=== PATIENT | female | born 1950 | race Caucasian/White ===

== ENCOUNTER 2020-10-26 18:01 | Emergency (ER) | payer MEDICARE ==
[2020-10-26] MEDS ORDERED: HYDROmorphone 0.5 MG/0.5 ML Syringe IVPUSH ONE ×2 (18:20→19:47)
[2020-10-26] MEDS ORDERED: Ondansetron 4 MG/2 ML SDV IVPUSH ONE (18:29)
[2020-10-26] MEDS ORDERED: Sodium Chloride 0.9% 1,000 ML IV SCH (18:30)
--- NOTE | 2020-10-26 18:42 | EDM.PDOC ---
ED HPI GENERAL MEDICAL PROBLEM - General Chief Complaint: Abdominal Pain Stated Complaint: [facility] Time Seen by Provider: 10/26/20 18:15 Source of Information: Reports: Patient, Family History Limitations: Reports: No Limitations - History of Present Illness INITIAL COMMENTS - FREE TEXT/NARRATIVE: 69-year-old female brought in by ambulance with lower abdominal pain. Symptoms have been present for 5-1/2 hours, they started generally across the lower abdomen but are now more focal in the right lower quadrant. She initially felt she needed to have a bowel movement but was unable, she has had a normal bowel movement since then. She has developed nausea and vomiting as the day has gone on, no fevers or chills. No shortness of breath or chest pain. She has deve loped some peritoneal irritability, increased pain with movement and felt bumps in the road while coming in by ambulance. Continues to be nauseated. No previous symptoms like this in the past. She is diabetic, glucose was just over 200 in route, she is afebrile. Onset: Gradual (Somewhat gradual onset around 1:00 PM) Duration: Hour(s): (Almost 6 hours) Location: Reports: Abdomen (Lower abdomen) Quality: Reports: Sharp, Other (Cramping) Improves with: Reports: None Worsens with: Reports: Movement Associated Symptoms: Reports: Loss of Appetite, Malaise, Nausea/Vomiting. Denies: Chest Pain, Cough, Fever/Chills, Shortness of Breath, Weakness Middle Abdomen Pain Score (Numeric/FACES): 8 - Related Data Allergies Allergy/AdvReac Type Severity Reaction Status Date / Time buprenorphine [From Buprenex] Allergy Anaphylactic Verified 10/26/20 18:10 Shock hydrocodone Allergy Anaphylactic Verified 10/26/20 18:10 Shock prochlorperazine Allergy Agitation Verified 10/26/20 18:10 [From Compazine] Home Meds: Home Meds Insulin Isophane NPH, Human [NovoLIN N] 10 - 15 unit SQ BEDTIME 10/26/20 [Hi story] Insulin Isophane NPH, Human [NovoLIN N] 15 unit SQ ACBRK 10/26/20 [History] Insulin Regular, Human [NovoLIN R] 8 - 10 unit .XX BEDTIME 10/26/20 [History] Insulin Regular, Human [NovoLIN R] 8 unit .XX ACBREAKFAST 10/26/20 [History] Past Medical History HEENT History: Reports: Impaired Vision Cardiovascular History: Reports: Hypertension [employer]ING [employer] History: Reports: Neurological History: Reports: Concussion Endocrine/Metabolic History: Reports: Diabetes, Type II Immunologic History: Reports: Other (See Below) Other Immunologic History: fibromyalgia - Infectious Disease History Infectious Disease History: Reports: Chicken Pox, Measles, Mumps - Past Surgical History Female Surgical History: Reports: Section Neurological Surgical History: Reports: Spinal Fusion Social & Family History - Tobacco Use Tobacco Use Status *Q: Never Tobacco User - Caffeine Use Caffeine Use: Reports: Coffee, Tea - Recreational Drug Use Recreational Drug Use: No ED ROS GENERAL - Review of Systems Review Of Systems: See Below Constitutional: Reports: Malaise, Decreased Appetite. Denies: Fever, Chills HEENT: Reports: No Symptoms Respiratory: Denies: Shortness of Breath, Cough Cardiovascular: Denies: Chest Pain, Palpitations GI/Abdominal: Reports: Abdominal Pain, Nausea, Vomiting. Denies: Constipation, Diarrhea : Reports: No Symptoms Skin: Reports: No Symptoms Neurological: Reports: No Symptoms Psychiatric: Reports: No Symptoms ED EXAM, GI/ABD - Physical Exam Exam: See Below Exam Limited By: No Limitations General Appearance: Alert, Mild Distress Eyes: Bilateral: Normal Appearance (Well hydrated, no jaundice) Head: Atraumatic Neck: Supple, Non-Tender Respiratory/Chest: Lungs Clear Cardiovascular: Regular Rate, Rhythm GI/Abdominal Exam: Soft, Tender (Very tender to palpation diffusely, particularly in the right lower quadrant where there is significant guarding and equivocal rebound tenderness) Extremities: Normal Inspection. No: Pedal Edema Neurological: Alert, Oriented Psychiatric: Anxious Skin Exam: Warm, Dry Course - Vital Signs Last Recorded V/S: Last Vital Signs Temp 97.4 F 10/27/20 05:45 Pulse 59 L 10/27/20 05:45 Resp 15 10/27/20 05:45 BP 174/55 H 10/27/20 05:45 Pulse Ox 96 10/27/20 05:45 - Orders/Labs/Meds Labs: Laboratory Tests 10/26/20 10/26/20 Range/Units 18:38 18:38 WBC 10.6 (4.5-11.0) K/uL RBC 4.53 (3.30-5.50) M/uL Hgb 13.1 (12.0-15.0) g/dL Hct 39.2 (36.0-48.0) % MCV 87 (80-98) fL MCH 29 (27-31) pg MCHC 33 (32-36) % Plt Count 301 (150-400) K/uL Neut % (Auto) 88.8 H (36-66) % Lymph % (Auto) 8.2 L (24-44) % [place] % (Auto) 2.6 (2-6) % Eos % (Auto) 0.2 L (2-4) % Baso % (Auto) 0.2 (0-1) % Sodium 137 L (140-148) mmol/L Potassium 3.5 L (3.6-5.2) mmol/L Chloride 101 (100-108) mmol/L Carbon Dioxide 23 (21-32) mmol/L Anion Gap 16.5 H (5.0-14.0) mmol/L BUN 10 (7-18) mg/dL Creatinine 0.7 (0.6-1.0) mg/dL Est Cr Clr Drug Dosing 66.33 mL/min Estimated GFR (MDRD) > 60 (>60) Glucose 216 H (74-106) mg/dL Calcium 8.9 (8.5-10.1) mg/dL Total Bilirubin 0.4 (0.2-1.0) mg/dL AST 13 L (15-37) U/L ALT 22 (12-78) U/L Alkaline Phosphatase 81 (46-116) U/L Total Protein 6.7 (6.4-8.2) g/dL Albumin 3.2 L (3.4-5.0) g/dL Globulin 3.5 (2.3-3.5) g/dL Albumin/Globulin Ratio 0.9 L (1.2-2.2) Lipase 60 L (73-393) U/L Meds: Medications Discontinued Medications Generic Name Dose Route Start Last Admin Trade Name Ezioq PRN Reason Stop Dose Admin Fentanyl 50 mcg 10/27/20 05:22 10/27/20 05:29 Fentanyl 100 Mcg/2 Ml Sdv IVPUSH 10/27/20 05:23 50 mcg ONETIME ONE Administration Hydromorphone HCl 0.5 mg 10/26/20 18:20 10/26/20 18:34 Hydromorphone 0.5 Mg/0.5 Ml Syringe IVPUSH 10/26/20 18:21 0.5 mg ONETIME ONE Administration Hydromorphone HCl 0.5 mg 10/26/20 19:47 10/26/20 20:04 Hydromorphone 0.5 Mg/0.5 Ml Syringe IVPUSH 10/26/20 19:48 0.5 mg ONETIME ONE Administration Hydromorphone HCl 0.5 mg 10/27/20 02:04 10/27/20 02:24 Hydromorphone 0.5 Mg/0.5 Ml Syringe IVPUSH 10/27/20 02:05 0.5 mg ONETIME ONE Administration Sodium Chloride 1,000 mls @ 500 mls/hr 10/26/20 18:30 10/26/20 18:34 Normal Saline IV 500 mls/hr ASDIRECTED SHONNA Administration Ketorolac Tromethamine 30 mg 10/26/20 21:54 10/26/20 22:06 Ketorolac 30 Mg/Ml Sdv IVPUSH 10/26/20 21:55 30 mg ONETIME ONE Administration Methylprednisolone Sodium Succinate 40 mg 10/27/20 05:22 10/27/20 05:29 Methylprednisolone Sodium Succinate 40 Mg/1 Ml Sdv IVPUSH 10/27/20 05:23 40 mg ONETIME ONE Administration Ondansetron HCl 4 mg 10/26/20 18:29 10/26/20 18:33 Ondansetron 4 Mg/2 Ml Sdv IVPUSH 10/26/20 18:30 4 mg ONETIME ONE Administration Oxycodone/Acetaminophen 2 tab 10/27/20 11:56 10/27/20 12:02 Acetaminophen/Oxycodone 325-5 Mg Tab PO 10/27/20 11:57 2 tab ONETIME STA Administration - Re-Assessments/Exams Free Text/Narrative Re-Assessment/Exam: 10/26/20 18:34 IV was started, patient was given 4 mg of IV Zofran and 0.5 mg of IV Dilaudid. CBC CMP and CRP were obtained as well as lipase, she will need a CT of the abdomen and pelvis after labs are drawn. 10/26/20 20:43 IMPRESSION: 1. Large 14-16 cm mildly thick-walled cystic lesion in the abdomen & pelvis extends to abut the right adnexa and gonadal veins and should be a large right ovarian cystic lesion. 3.5 cm extension of this lesion posterior laterally or separate cystic lesion in the right adnexa/ovary. 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 Benign and malignant right ovarian neoplasm cannot be differentiated. Recommend pelvic ultrasound to further evaluate internal contents of this lesion and also to confirm blood flow in the right ovary and exclude right ovarian torsion. 2. No metastatic disease in abdomen or pelvis. 3. Colonic diverticulosis without evidence diverticulitis. 4. Small to moderate-sized hiatal hernia. Other findings as above. 10/26/20 22:27 Patient responded well to pain control and ultrasound showed good blood flow to the right ovary. A long conversation was had with the [employer] oncologist from [place], Dr. Heart, and the patient will be treated with outpatient pain medication and arranged for an outpatient evaluation at [place] early next week. She was then given 30 mg of IV Toradol and will be discharged with oral Toradol and oral Percocet. 10/27/20 06:30 Patient needed 1 additional dose of fentanyl and she was given 40 mg of Solu- Medrol IV at about 5 AM. Her pain is down to a 4 at 7 AM. 10/27/20 06:51 Patient was discharged with 20 doses of ketorolac to take one every 6-8 hours, and 15 Percocet for pain control. She is going to try to find a ride back to [place] and then they are going to travel to [place] for further work-up. Departure - Departure Time of Disposition: 13:34 Disposition: Home, Self-Care 01 Clinical Impression: Right ovarian cyst Abdominal pain Qualifiers: Abdominal location: right lower quadrant Qualified Code(s): R10.31 - Right lower quadrant pain - Discharge Information Instructions: Ovarian Cyst, [id number] Referrals: PCP,None [Primary Care Provider] - Forms: ED Department Discharge Care Plan Goals: Use pain medications as prescribed, stay hydrated, and recheck at [place] as soon as arranged. Dr. Heart, DIRECTOR [employer] oncologist at [place] is expecting you next week and will be available by phone for the rest of this weekend if you run into troubles or problems Sepsis Event Note (ED) - Evaluation Sepsis Screening Result: No Definite Risk - Focused Exam Vital Signs: Vital Signs Temp Pulse Resp BP Pulse Ox 10/27/20 05:45 97.4 F 59 L 15 174/55 H 96
--- NOTE | 2020-10-26 20:19 | CRLCT ---
For Patients: As a result of the 21st Century Cures Act, medical imaging exams and procedure reports are released immediately into your electronic medical record. You may view this report before your referring provider. If you have questions, please contact your health care provider. INDICATION: Lower abdominal pain for 6 hours. TECHNIQUE: CT of abdomen and pelvis performed without oral or IV contrast. FINDINGS: Mild elevation right hemidiaphragm. Degenerative disc disease L5 interspace which is prominently narrowed. Mild to moderate anterior subluxation of L5 on S1 due to bilateral pars defects. Moderate osteopenia. Large mildly thick-walled cystic lesion involving the mid and lower abdomen and mid and upper pelvis measures 14.5 cm in transverse dimension by 12.4 cm in AP dimension and extends for craniocaudad length of 15.5 cm. This the contains mild calcifications along its upper wall and extends to abut the right gonadal veins and adnexal typical a large right ovarian cystic lesion. Smaller cystic lesion along the posterior lateral aspect of this lesion measuring 3.5 cm on image 93 could be a part of the larger lesion or a separate lesion. Findings consistent with a right ovarian neoplasm. Benign and malignant etiologies cannot be differentiated. Given the presence of abdominal pain, consider pelvic ultrasound to confirm blood flow in the right ovary and exclude ovarian torsion as well as further evaluate the lesions internal contents for solid nodularity or other complexity such as septations. Atelectasis in the lingula greater than right middle lobe. Mild subpleural nodular atelectasis in the lower lobes. Small to moderate-sized hiatal hernia with wall thickening. Subcutaneous edema in the lumbar back. No metastatic disease in the abdomen or pelvis. Colonic diverticulosis. Appendix is normal. Mild subcutaneous edema in the pelvis and abdomen. Remainder negative. IMPRESSION: extends to abut the right adnexa and gonadal veins and should be a large right ovarian cystic lesion. 3.5 cm extension of this lesion posterior laterally or separate cystic lesion in the right adnexa/ovary. 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 Benign and malignant right ovarian neoplasm cannot be differentiated. Recommend pelvic ultrasound to further evaluate internal contents of this lesion and also to confirm blood flow in the right ovary and exclude right ovarian torsion. 2. No metastatic disease in abdomen or pelvis. 3. Colonic diverticulosis without evidence diverticulitis. 4. Small to moderate-sized hiatal hernia. Other findings as above. Please note that all CT scans at this facility use dose modulation, iterative reconstruction, and/or weight-based dosing when appropriate to reduce radiation dose to as low as reasonably achievable. Dictated by Kristopher Mejias MD @ 10/26/2020 8:18:[address] Kristopher Mejias @ Oct 26 2020 8:18PM
[2020-10-26] MEDS ORDERED: Ketorolac 30 MG/ML SDV IVPUSH ONE (21:54)
--- NOTE | 2020-10-26 22:53 | CRLUS ---
For Patients: As a result of the Century Cures Act, medical imaging exams and procedure reports are released immediately into your electronic medical record. You may view this report before your referring provider. If you have questions, please contact your health care provider. INDICATION: Assess ovaries, blood supply. Abnormal findings on CT from earlier today. TECHNIQUE: Ultrasound pelvis transabdominal for assessment or to visualize the endometrium. Real-time sonographic images with spectral and color Doppler imaging of the ovaries were obtained. COMPARISON: CT study earlier on 10/26/2020. FINDINGS: Uterus: 6.6 x 4.3 x 4.1 cm. Normal echotexture of the myometrium. No masses. Endometrium: Endometrial thickness is normal, measuring 2 mm. No sign of endometrial mass or fluid. Right ovary: Anechoic right ovarian cyst, measuring 15 x 13 x 13 cm. Arterial flow to the right ovary is visualized. No mural nodularity, solid component, or internal septation is identified within the right ovarian cyst. Left ovary: Not visualized. Cul-de-sac: No significant free fluid. IMPRESSION: 1. Anechoic right ovarian cyst, measuring up to [address] and ultrasound findings favor ovarian cystadenoma. Recommend gynecologic consultation. 2. Arterial flow and likely venous flow to the right ovary identified on spectral analysis. 3. No significant free pelvic fluid. 4. Left ovary not identified. Dictated by Humza Scott MD @ 10/26/2020 10:50:56 PM Dictated by: Humza Scott MD @ 10/26/2020 22:51:05 (Electronically Signed)
[2020-10-27] MEDS ORDERED: HYDROmorphone 0.5 MG/0.5 ML Syringe IVPUSH ONE (02:04)
[2020-10-27] MEDS ORDERED: methylPREDNISolone Sodium Succinate 40 MG/1 ML SDV IVPUSH ONE (05:22)
[2020-10-27] MEDS ORDERED: fentaNYL 100 MCG/2 ML SDV IVPUSH ONE (05:22)
[2020-10-27] MEDS ORDERED: Acetaminophen/oxyCODONE 325-5 MG Tab PO STA (11:56)
== END 2020-10-27 13:51 | disposition home or self-care (01) ==
LOC: JP.ED 18:01
DX: N83.201 Unspecified ovarian cyst, right side (principal); I10 Essential (primary) hypertension; E11.9 Type 2 diabetes mellitus without complications; Z88.8 Allergy status to other drugs, medicaments and biological substances; Z88.5 Allergy status to narcotic agent; Z79.4 Long term (current) use of insulin
CPT/HCPCS: 36415; 74176; 76857; 80053; 83690; 85025; 96374; 96375; 96376; 99284; A9270; J1170; J1885; J2405; J2920; J3010; J7030